=== PATIENT | male | born 1935 | race Caucasian/White ===

== ENCOUNTER 2023-01-27 18:04 | Emergency (ER) | payer MEDICARE, SELFPAY ==
[2023-01-27] VITALS (8 sets, daily range): BP systolic 130–153; BP diastolic 77–90; PULSE 60–74; RESP 12–18; TEMP 36.9; O2SAT 91–98; BMI 29.8
--- NOTE | 2023-01-27 18:27 | ECG_ITS ---
The [facility] Test Date: 2023-01-27 Pat Name: KIRILL KAUR Department: Room: - Gender: Male Neuropsychology Director: : 1935 Requested By: RITU ZHAO Order Number: [id number] Reading MD: PATRICK ALLISON Measurements Intervals [place] Rate: 59 P: 76 TN: 172 QRS: 37 QRSD: 84 T: 43 QT: 404 QTc: 404 Interpretive Statements 1100 Sinus rhythm 9110 normal ECG No previous ECG available for comparison Electronically Signed On 01-29-2023 16:51:00 EST by PATRICK ALLISON
--- NOTE | 2023-01-27 18:28 | ED_ITS ---
Documented by User: BUSHRA Urias 01/27/23 21:11 HPI - General Adult General Chief complaint: Fall Stated complaint: FALL Time Seen by Provider: 01/27/23 18:25 Source: patient and caregiver (EMS) Source information: granddaughter at bedside Mode of arrival: ambulance Limitations: altered mental status History of Present Illness HPI narrative: patient is a 87-year-old male presents to the Emergency Room with fall unwitnessed an assisted living facility. Patient owns her also. Does not recall the fall. Has a small laceration to the left brow. Patient recently took his to dialysis and was back home around 4 PM. He was found a few hours later. Patient does not recall falling and EMS was consulted for concern of loss of consciousness.. patient admits he does not know what happened of that he woke up on the ground, he complains of some mild soreness to his right wrist. No other complaints, denies visual disturbance, nausea or headache. Patient aware that he is bleeding from the right brow. Patient is full code, lives with his in assisted care facility where he has monitored and given medication. He easily identifies his granddaughter at bedside, she reports that he appears baseline but has had steady cognitive decline with staff helping him with ADL's.. Pt admits he doesn't write checks anymore or keep track of time/ days. granddaughter and she deck at bedside, patient pleasantly confused, states he does not know his medical history or medications they just give them to me . Patient states he does not stay current with a day of the week. He does drive his to her dialysis appointments three days a week. Patient had a c-collar placed on arrival out of precaution pending CT studies. Related Data Allergies Allergy/AdvReac Type Severity Reaction Status Date / Time Sulfa (Sulfonamide Allergy Unknown Verified 01/27/23 18:37 Antibiotics) Review of Systems ROS Status of ROS unobtainable due to mental status Constitutional Denies: fever or chills Eyes Denies: change in vision PFSH PFSH Social History Smoking status: Never smoker Exam Narrative Exam Narrative: Nurses notes and vital signs reviewed and patient is not hypoxic. General: The patient appears well and in no apparent distress. Patient is resting comfortably on cart. Skin: Warm, dry, no pallor noted.no evidence of rash, 1 cm laceration right brow bleeding controlled on arrival with direct pressure Head: Normocephalic, atraumatic Neck: Supple, trachea mid-line, no tenderness, no lymphadenopathy Eye: Pupils are equal, round and reactive to light, EOMI Ears, Nose, Mouth, and Throat: TM are clear, mild cerumen ,no hemotympanum, oral mucosa is moist, no posterior oropharynx erythema or hypertrophy, uvula is mid-line Cardiovascular: Regular Rate and Rhythm Respiratory: Patient is in no distress, no accessory muscle use, lungs are clear to auscultation, no wheezing, rales or rhonchi. Chest Wall: no tenderness Back: non-tender, no CVA tenderness Musculoskeletal: normal ROM,positive tenderness right distal radius, patient has full range of motion. no swelling, GI: Normal bowel sounds, no tenderness to palpation, no masses appreciated. No rebound, guarding, or rigidity noted. Neurological: A&O person and family at bedside. Psychiatric: Cooperative Constitutional Vital Signs, click to edit/add: Last Vital Signs Temp 98.4 F 01/27/23 18:06 Pulse 74 01/27/23 22:30 Resp 16 01/27/23 22:30 BP 130/90 01/27/23 22:30 Pulse Ox 96 01/27/23 22:30 O2 Del Method Room Air 01/27/23 18:06 Course Vital Signs Vital signs: Vital Signs Temperature 98.4 F 01/27/23 18:06 Pulse Rate 60 01/27/23 18:06 Respiratory Rate 18 01/27/23 18:06 Blood Pressure 133/77 01/27/23 18:06 Pulse Oximetry 97 01/27/23 18:06 Oxygen Delivery Method Room Air 01/27/23 18:06 Temperature 98.4 F 01/27/23 18:06 Pulse Rate 74 01/27/23 22:30 Respiratory Rate 16 01/27/23 22:30 Blood Pressure 130/90 01/27/23 22:30 Pulse Oximetry 96 01/27/23 22:30 Oxygen Delivery Method Room Air 01/27/23 18:06 Medical Decision Making MDM Narrative Medical decision making narrative: Given xarelto use, concern of altered mental status versus closed head injury patient sent for CT head and neck. positive loss of consciousness versus baseline altered mentation and forgetfulness. patient had suture repair of the right eyebrow, C-spine precautions removed after negative CT of the spine, patient has no tenderness. Repeat exam and patient doing well speaking with granddaughter at bedside. We discussed laboratory studies, patient has questionable findings for subarachnoid bleeding on CT. Contacted [facility], advised the patient has a history of atrial fibrillation, hypothyroid, hypertension, melanoma, hyperlipidemia, thyroid cancer and osteoarthritis on his chart. They will fax over a definitive report. He is a full code. Patient's case discussed with Dr. Lee neurosurgeon at a pharmacy at 7:55 PM. He advised that he would consult on the patient but they should be admitted to the hospitalist and stopped his xarelto. [facility] hospitalist paged Spoke with Dr. Rosario at 8:45pm, advised he would accept the patient for closed head injury observation, aware of Dr. Lee's recommendation, CT findings and labs discussed. Patient remained stable. He did advise that hospital policy at [facility] once may require admission to trauma service. Case was Discussed with Dr. Soler( trauma service) , reviewed Ct Findings. and agrees pt could be admitted to hospitalist as they are differentiating between calcification and bleed on CT scan with stable patient. Dr. Rosario was re-paged for transfer. Risks and benefits of transfer discussed, patient preferring to go by private car with granddaughter driving. Grand-daughter unable to wait any longer and pt agrees to go by EMS transport. . Dr. Rosario accepted transfer at 9:10pm Lab Data Lab results reviewed: Yes I reviewed the patient's lab results Labs: Lab Results 01/27/23 01/27/23 Range/Units 19:16 19:22 WBC 5.6 (4.0-11.0) 10^3/uL RBC 4.36 L (4.70-6.10) 10^6/uL Hgb 14.2 (14.0-18.0) g/dL Hct 42.3 (42.0-54.0) % MCV 97.0 H (80.0-94.0) fL MCH 32.6 (25.9-34.0) pg MCHC 33.6 (29.9-35.2) g/dL RDW 12.5 (11.0-15.0) % Plt Count 164 (150-450) 10^3/uL MPV 10.3 (9.5-13.5) fL Neut % (Auto) 53.9 (43.0-75.0) % Lymph % (Auto) 28.4 (20.5-60.0) % Page % (Auto) 14.5 H (1.7-12.0) % Eos % (Auto) 2.3 (0.9-7.0) % Baso % (Auto) 0.7 (0.2-2.0) % Neut # (Auto) 3.0 (1.4-6.5) 10^3/uL Lymph # (Auto) 1.6 (1.2-3.8) 10^3/uL Page # (Auto) 0.8 (0.3-0.8) 10^3/uL Eos # (Auto) 0.1 (0.0-0.7) 10^3/uL Baso # (Auto) 0.0 (0.0-0.1) 10^3/uL Abs Immat Gran (auto) 0.01 (0.00-0.03) 10^3/uL Imm/Tot Granulo (auto) 0.2 (0.0-0.5) % PT 11.3 (9.0-11.6) sec INR 1.07 Sodium 137 (136-145) mmol/L Potassium 4.4 (3.5-5.1) mmol/L Chloride 104 (98-107) mmol/L Carbon Dioxide 27.4 (21.0-32.0) mmol/L Anion Gap 10.0 BUN 24.0 H (7.0-18.0) mg/dL Creatinine 0.96 (0.70-1.30) mg/dL Est GFR ( Amer) >60 (>=60) Est GFR (Non-Af Amer) >60 (>=60) BUN/Creatinine Ratio 25.0 Glucose 102 (74-106) mg/dL Calcium 8.7 (8.5-10.1) mg/dL Total Bilirubin 0.5 (0.2-1.0) mg/dL AST 25 (15-37) U/L ALT 25 (16-63) U/L Alkaline Phosphatase 55 (46-116) U/L Total Creatine Kinase 284 (39-308) U/L CK-MB (CK-2) 3.29 (<=3.60) ng/mL Myoglobin 180 H (16-96) ng/mL Troponin I High Sens 31.7 (4.0-76.1) pg/mL Total Protein 7.4 (6.4-8.2) g/dL Albumin 3.6 (3.4-5.0) g/dL Globulin 3.8 g/dL Albumin/Globulin Ratio 0.9 Urine Color Yellow (YELLOW) Urine Clarity Clear (CLEAR) Urine pH 5.5 (5.0-9.0) Ur Specific [place] >=1.030 A (1.005-1.025) Urine Protein Negative (NEG/TRACE) mg/dL Urine Glucose (UA) Negative (NEGATIVE) mg/dL Urine Ketones Negative (NEGATIVE) mg/dL Urine Occult Blood Negative (NEGATIVE) Urine Nitrite Negative (NEGATIVE) Urine Bilirubin Negative (NEGATIVE) Urine Urobilinogen 0.2 (0.2-1.0) EU/dL Ur Leukocyte Esterase Negative (NEGATIVE) Imaging Data Ct C-spine: Radiologist's impression: Procedure: CT cervical spine wo con EXAM: CT cervical spine wo con HISTORY: fall with LOC COMPARISON: None. TECHNIQUE: Axial CT imaging was performed. Sagittal and coronal reformatted/reconstructed sequencing was additionally performed FINDINGS: IMPRESSION: Age-indeterminate straightening of the normal cervical lordosis between C1 and C6. Vertebral body heights and alignments exhibit no fracture or listhesis. The dens and lateral masses of C1 are symmetric. Multilevel intervertebral disc space narrowing, endplate, uncovertebral and facet arthrosis, most pronounced at 5-C6. No prevertebral soft tissue edema. The visualized osseous skull base, mastoid air cells, airway, superficial soft tissues, thoracic inlet and pulmonary apices exhibit no gross visualized irregularity. Surgical clips within the thoracic inlet. Atherosclerosis of the vascular structures. Electronically authenticated by: AMY ARROYO Date: 01/27/2023 18:58 right wrist xray: Radiologist's impression: EXAM: XR wrist RT min 3V HISTORY: Pain following fall COMPARISON: None. TECHNIQUE: 3 views FINDINGS: Palmar hand subcutaneous soft tissue edema. No discrete fracture, dislocation, subluxation or osseous lesion. Approximately 4.3 mm of positive ulnar variance. Mild subchondral changes within the adjacent proximal pole of the lunate. Age-related changes of first carpometacarpal and triscaphe joints. IMPRESSION: Palmar hand soft tissue edema with no visualized acute osseous abnormality. Electronically authenticated by: AMY ARROYO Date: 01/27/2023 19:02 Chest x-ray: Radiologist's impression: FRANCIA CRUZ Procedure: XR chest 1V Portable EXAMINATION: XR chest 1V HISTORY: Fall COMPARISON: None. TECHNIQUE: Portable chest FINDINGS: Limited study as the hemidiaphragms are cut off this study. The usual lung parenchyma is free of consolidation or infiltrate. No pneumothorax or large pleural effusion. The cardiac, mediastinal and hilar contours are normal. The visualized osseous structures exhibit no gross abnormality. IMPRESSION: No visualized acute cardiopulmonary abnormality. Electronically authenticated by: AMY ARROYO Date: 01/27/2023 19:04 CT scan - head: Attestation: I have reviewed the pertinent imaging results. Radiologist's impression: At the request of: KAILEE RONDON Procedure: CT head/brain wo con EXAM: CT head/brain wo con; [id number] REASON FOR EXAM: fall with LOC , patient on a blood thinner COMPARISON: None. TECHNIQUE: Axial CT images of the head obtained without contrast. Multiplanar reformats generated at the scanner. Dose reduction technique used: Automated exposure control and/or adjustment of the mA and/or kV according to patient size and/or use of iterative reconstruction technique. FINDINGS: Parenchyma: -Moderate generalized cerebral volume loss. -No midline shift or mass effect. Basilar cisterns are patent. -No acute intracranial hemorrhage. -No loss of cortical eden-white differentiation to indicate acute cortical infarct. -Mild multifocal and bilateral periventricular white matter predominant hypoattenuation, nonspecific though commonly seen in the setting of chronic microvascular ischemic disease. Extra-axial spaces: -Trace hyperattenuation within the right anterior temporal subarachnoid space (for example series 5 image 14 and series 7 image 39 through 45). -Trace hyperattenuation along the posterior aspect of the falx cerebri (series 6 image 54). Ventricles: Within expected limits given the degree of cerebral volume loss. Paranasal sinuses: Visualized paranasal sinuses are clear. Mastoid air cells: Partial opacification of the right mastoid air cells. The right middle ear is clear. Small left mastoid effusion. Orbits: No acute abnormality. Osseous: No acute findings. Soft tissues: Large amount of presumed cerumen within bilateral external auditory canals. IMPRESSION: 1. Trace right temporal lobe subarachnoid hyperattenuation could represent artifact versus posttraumatic subarachnoid hemorrhage. 2. Trace hyperattenuation along the posterior aspect of the falx cerebri is favored represent amorphous dural calcification though a minimal amount of subdural blood products could have a similar appearance. CRITICAL RESULT COMMUNICATION BY: Carin Brink MD TO: Kailee Rondon TIME/DATE COMMUNICATED: 01/27/2023 4:19 PM PST METHOD: via telephone FINDING: Possible acute intracranial hemorrhage TIME/DATE IDENTIFIED: 01/27/2023 4:07 PM PST END CRITICAL RESULT COMMUNICATION Electronically authenticated by: CARIN BRINK Date: 01/27/2023 19:21 ECG Data Attestation: I personally reviewed and interpreted this ECG as follows: Interpretation: EKG interpretation: Emergency Department physician interpretation, normal sinus rhythm 59 , no ectopy, no ST segment elevation, normal axis. Discharge Plan Discharge Chief Complaint: Fall Clinical Impression: Closed head injury Patient Disposition: [facility] Time of Disposition Decision: 20:10 Discharge Location: [facility] Discharge location: [facility] Floor- Dr. Rosario accepting. Condition: Good Mode of Transportation: Private Vehicle Discharge Date/Time: 01/28/23 00:40 Procedures ED Laceration Laceration right brow: Additional comments: Laceration repair: Done under sterile conditions. The use of Betadine was used to prep and clean the area. right brow. Topical LET applied: The wound was irrigated copiously with normal saline. The wound was explored there was no evidence of foreign material. The laceration was approximated with 6-0 prolene. 6 simple interrupted sutures were placed. Patient tolerated the procedure well. The patient was neurovascularly intact post. the patient had bacitracin applied to the laceration and a dry sterile dressing was place. The patient will need to follow-up in the next 7-10 days for removal. Documented by User: Kailee Rondon MD 02/01/23 18:37 HPI - General Adult General Chief complaint: Fall Stated complaint: FALL Time Seen by Provider: 01/27/23 18:25 Related Data Allergies Allergy/AdvReac Type Severity Reaction Status Date / Time Sulfa (Sulfonamide Allergy Unknown Verified 01/27/23 18:37 Antibiotics) PFSH PFSH Social History Smoking status: Never smoker Exam Constitutional Vital Signs, click to edit/add: Last Vital Signs Temp 98.4 F 01/27/23 18:06 Pulse 74 01/27/23 22:30 Resp 16 01/27/23 22:30 BP 130/90 01/27/23 22:30 Pulse Ox 96 01/27/23 22:30 O2 Del Method Room Air 01/27/23 18:06 Course Vital Signs Vital signs: Vital Signs Temperature 98.4 F 01/27/23 18:06 Pulse Rate 60 01/27/23 18:06 Respiratory Rate 18 01/27/23 18:06 Blood Pressure 133/77 01/27/23 18:06 Pulse Oximetry 97 01/27/23 18:06 Oxygen Delivery Method Room Air 01/27/23 18:06 Temperature 98.4 F 01/27/23 18:06 Pulse Rate 74 01/27/23 22:30 Respiratory Rate 16 01/27/23 22:30 Blood Pressure 130/90 01/27/23 22:30 Pulse Oximetry 96 01/27/23 22:30 Oxygen Delivery Method Room Air 01/27/23 18:06 Medical Decision Making MDM Narrative Medical decision making narrative: Given xarelto use, concern of altered mental status versus closed head injury patient sent for CT head and neck. positive loss of consciousness versus baseline altered mentation and forgetfulness. patient had suture repair of the right eyebrow, C-spine precautions removed after negative CT of the spine, patient has no tenderness. Repeat exam and patient doing well speaking with granddaughter at bedside. We discussed labor atory studies, patient has questionable findings for subarachnoid bleeding on CT. Contacted [facility], advised the patient has a history of atrial fibrillation, hypothyroid, hypertension, melanoma, hyperlipidemia, thyroid cancer and osteoarthritis on his chart. They will fax over a definitive report. He is a full code. Patient's case discussed with Dr. Lee neurosurgeon at a pharmacy at 7:55 PM. He advised that he would consult on the patient but they should be admitted to the hospitalist and stopped his xarelto. [facility] hospitalist paged Spoke with Dr. Rosario at 8:45pm, advised he would accept the patient for closed head injury observation, aware of Dr. Lee's recommendation, CT findings and labs discussed. Patient remained stable. He did advise that hospital policy at [facility] once may require admission to trauma service. Case was Discussed with Dr. Soler( trauma service) , reviewed Ct Findings. and agrees pt could be admitted to hospitalist as they are differentiating between calcification and bleed on CT scan with stable patient. Dr. Rosario was re-paged for transfer. Risks and benefits of transfer discussed, patient preferring to go by private car with granddaughter driving. Grand-daughter unable to wait any longer and pt agrees to go by EMS transport. . Dr. Rosario accepted transfer at 9:10pm Pt was seen and evaluated by Dr Brown, not Dr Rondon. Critical care time 45 minutes exclusive from separate billable procedures that were performed. The following was considered in the determination of critical care but not limited to the level of medical decision making, intensive cardiac and/or respiratory monitoring, frequent vital sign monitoring, evaluation of laboratory studies, evaluation of radiographic studies, oxygen monitoring, and constant monitoring and speaking to family at bedside Lab Data Labs: Lab Results 01/27/23 01/27/23 Range/Units 19:16 19:22 WBC 5.6 (4.0-11.0) 10^3/uL RBC 4.36 L (4.70-6.10) 10^6/uL Hgb 14.2 (14.0-18.0) g/dL Hct 42.3 (42.0-54.0) % MCV 97.0 H (80.0-94.0) fL MCH 32.6 (25.9-34.0) pg MCHC 33.6 (29.9-35.2) g/dL RDW 12.5 (11.0-15.0) % Plt Count 164 (150-450) 10^3/uL MPV 10.3 (9.5-13.5) fL Neut % (Auto) 53.9 (43.0-75.0) % Lymph % (Auto) 28.4 (20.5-60.0) % Page % (Auto) 14.5 H (1.7-12.0) % Eos % (Auto) 2.3 (0.9-7.0) % Baso % (Auto) 0.7 (0.2-2.0) % Neut # (Auto) 3.0 (1.4-6.5) 10^3/uL Lymph # (Auto) 1.6 (1.2-3.8) 10^3/uL Page # (Auto) 0.8 (0.3-0.8) 10^3/uL Eos # (Auto) 0.1 (0.0-0.7) 10^3/uL Baso # (Auto) 0.0 (0.0-0.1) 10^3/uL Abs Immat Gran (auto) 0.01 (0.00-0.03) 10^3/uL Imm/Tot Granulo (auto) 0.2 (0.0-0.5) % PT 11.3 (9.0-11.6) sec INR 1.07 Sodium 137 (136-145) mmol/L Potassium 4.4 (3.5-5.1) mmol/L Chloride 104 (98-107) mmol/L Carbon Dioxide 27.4 (21.0-32.0) mmol/L Anion Gap 10.0 BUN 24.0 H (7.0-18.0) mg/dL Creatinine 0.96 (0.70-1.30) mg/dL Est GFR ( Amer) >60 (>=60) Est GFR (Non-Af Amer) >60 (>=60) BUN/Creatinine Ratio 25.0 Glucose 102 (74-106) mg/dL Calcium 8.7 (8.5-10.1) mg/dL Total Bilirubin 0.5 (0.2-1.0) mg/dL AST 25 (15-37) U/L ALT 25 (16-63) U/L Alkaline Phosphatase 55 (46-116) U/L Total Creatine Kinase 284 (39-308) U/L CK-MB (CK-2) 3.29 (<=3.60) ng/mL Myoglobin 180 H (16-96) ng/mL Troponin I High Sens 31.7 (4.0-76.1) pg/mL Total Protein 7.4 (6.4-8.2) g/dL Albumin 3.6 (3.4-5.0) g/dL Globulin 3.8 g/dL Albumin/Globulin Ratio 0.9 Urine Color Yellow (YELLOW) Urine Clarity Clear (CLEAR) Urine pH 5.5 (5.0-9.0) Ur Specific [place] >=1.030 A (1.005-1.025) Urine Protein Negative (NEG/TRACE) mg/dL Urine Glucose (UA) Negative (NEGATIVE) mg/dL Urine Ketones Negative (NEGATIVE) mg/dL Urine Occult Blood Negative (NEGATIVE) Urine Nitrite Negative (NEGATIVE) Urine Bilirubin Negative (NEGATIVE) Urine Urobilinogen 0.2 (0.2-1.0) EU/dL Ur Leukocyte Esterase Negative (NEGATIVE) Discharge Plan Discharge Chief Complaint: Fall Clinical Impression: Closed head injury Patient Disposition: [facility] Time of Disposition Decision: 20:10 Discharge Location: [facility] Discharge location: [facility] Floor- Dr. Rosario accepting. Condition: Good Mode of Transportation: Private Vehicle Discharge Date/Time: 01/28/23 00:40
--- NOTE | 2023-01-27 18:28 | PC.NURSE ---
Laceration to forehead cleansed with Radhames
--- NOTE | 2023-01-27 18:30 | CT_ITS ---
The [address] [address] Patient Name: KIRILL KAUR MRN: [id number] date: 1935 Sex: M Assigned Patient Location: ED.MAIN Current Patient Location: ER Accession/Order Number: [id number] Exam Date: 01/27/2023 18:24 Report Date: 01/27/2023 18:58 At the request of: KAILEE FREGOSO Procedure: CT cervical spine wo con EXAM: CT cervical spine wo con HISTORY: fall with LOC COMPARISON: None. TECHNIQUE: Axial CT imaging was performed. Sagittal and coronal reformatted/reconstructed sequencing was additionally performed FINDINGS: IMPRESSION: Age-indeterminate straightening of the normal cervical lordosis between C1 and C6. Vertebral body heights and alignments exhibit no fracture or listhesis. The dens and lateral masses of C1 are symmetric. Multilevel intervertebral disc space narrowing, endplate, uncovertebral and facet arthrosis, most pronounced at 5-C6. No prevertebral soft tissue edema. The visualized osseous skull base, mastoid air cells, airway, superficial soft tissues, thoracic inlet and pulmonary apices exhibit no gross visualized irregularity. Surgical clips within the thoracic inlet. Atherosclerosis of the vascular structures. Electronically authenticated by: AMY ARROYO Date: 01/27/2023 18:58
--- NOTE | 2023-01-27 18:48 | XR_ITS ---
The [address] [address] Patient Name: KIRILL KAUR MRN: [id number] date: 1935 Sex: M Assigned Patient Location: ER Current Patient Location: ER Accession/Order Number: [id number] Exam Date: 01/27/2023 18:40 Report Date: 01/27/2023 19:02 At the request of: FRANCIA CRUZ Procedure: XR wrist RT min 3V EXAM: XR wrist RT min 3V HISTORY: Pain following fall COMPARISON: None. TECHNIQUE: 3 views FINDINGS: Palmar hand subcutaneous soft tissue edema. No discrete fracture, dislocation, subluxation or osseous lesion. Approximately 4.3 mm of positive ulnar variance. Mild subchondral changes within the adjacent proximal pole of the lunate. Age-related changes of first carpometacarpal and triscaphe joints. XR/XR wrist RT min 3V IMPRESSION: Palmar hand soft tissue edema with no visualized acute osseous abnormality. Electronically authenticated by: AMY ARROYO Date: 01/27/2023 19:02
--- NOTE | 2023-01-27 18:48 | XR_ITS ---
The [address] [address] Patient Name: KIRILL KAUR MRN: [id number] date: 1935 Sex: M Assigned Patient Location: ER Current Patient Location: ER Accession/Order Number: [id number] Exam Date: 01/27/2023 18:40 Report Date: 01/27/2023 19:04 At the request of: FRANCIA CRUZ Procedure: XR chest 1V Portable EXAMINATION: XR chest 1V HISTORY: Fall COMPARISON: None. TECHNIQUE: Portable chest FINDINGS: Limited study as the hemidiaphragms are cut off this study. The usual lung parenchyma is free of consolidation or infiltrate. No pneumothorax or large pleural effusion. The cardiac, mediastinal and hilar contours are normal. The visualized osseous structures exhibit no gross abnormality. XR/XR chest 1V IMPRESSION: No visualized acute cardiopulmonary abnormality. Electronically authenticated by: AMY ARROYO Date: 01/27/2023 19:04
[2023-01-27] MEDS: LIDOCAINE HCL 1% PF 20 MG/2 ML VIAL 5 ML INJ (18:53)
[2023-01-27 19:32] LABS: Basophils Percent Auto 0.7 % (0.2-2.0); Eosinophils Absolute Auto 0.1 10^3/uL (0.0-0.7); Eosinophils Percent Auto 2.3 % (0.9-7.0); Hematocrit 42.3 % (42.0-54.0); Hemoglobin 14.2 g/dL (14.0-18.0); Immature Granulocytes Abs Auto 0.01 10^3/uL (0.00-0.03); Immature Granulocytes Pct Auto 0.2 % (0.0-0.5); Lymphocytes Absolute Auto 1.6 10^3/uL (1.2-3.8); Lymphocytes Percent Auto 28.4 % (20.5-60.0); Mean Corpuscular HGB Conc 33.6 g/dL (29.9-35.2); Mean Corpuscular Hemoglobin 32.6 pg (25.9-34.0); Mean Platelet Volume 10.3 fL (9.5-13.5); Monocytes Absolute Auto 0.8 10^3/uL (0.3-0.8); Monocytes Percent Auto 14.5 % (1.7-12.0); Neutrophils Percent Auto 53.9 % (43.0-75.0); Platelet Count 164 10^3/uL (150-450); Red Blood Count 4.36 10^6/uL (4.70-6.10); Red Cell Distribution Width 12.5 % (11.0-15.0); White Blood Count 5.6 10^3/uL (4.0-11.0)
[2023-01-27 19:33] LABS: Bilirubin Urine NEGATIVE (NEGATIVE); Blood Urine NEGATIVE (NEGATIVE); Clarity Urine CLEAR (CLEAR); Color Urine YELLOW (YELLOW); Glucose Urine UA NEGATIVE (NEGATIVE); Ketones Urine NEGATIVE (NEGATIVE); Leukocyte Esterase Urine NEGATIVE (NEGATIVE); Nitrite Urine NEGATIVE (NEGATIVE); Protein Urine NEGATIVE (NEG/TRACE); Specific Gravity Urine >=1.030 (1.005-1.025); Urobilinogen Urine 0.2 EU/dL (0.2-1.0); pH Urine 5.5 (5.0-9.0)
[2023-01-27 19:37] LABS: Urine Microscopic Indicated NO
[2023-01-27 19:44] LABS: INR 1.07; Prothrombin Time 11.3 sec (9.0-11.6)
[2023-01-27 19:48] LABS: Alanine Aminotransferase 25 U/L (16-63); Albumin Globulin Ratio 0.9; Albumin Level 3.6 g/dL (3.4-5.0); Alkaline Phosphatase 55 U/L (46-116); Aspartate Amino Transferase 25 U/L (15-37); Bilirubin Total 0.5 mg/dL (0.2-1.0); Calcium 8.7 mg/dL (8.5-10.1); Carbon Dioxide 27.4 mmol/L (21.0-32.0); Chloride 104 mmol/L (98-107); Estimated GFR (African America >60 (>=60); Estimated GFR (Non-African Ame >60 (>=60); Globulin 3.8 g/dL; Glucose 102 mg/dL (74-106); Potassium 4.4 mmol/L (3.5-5.1); Sodium 137 mmol/L (136-145); Total Protein 7.4 g/dL (6.4-8.2)
[2023-01-27 20:02] LABS: Creatine Kinase 284 U/L (39-308); Creatine Kinase MB 3.29 ng/mL (<=3.60); Myoglobin 180 ng/mL (16-96); Troponin I High Sensitivity 31.7 pg/mL (4.0-76.1)
== END 2023-01-28 00:40 | disposition short-term general hospital (02) ==
PROVIDERS: Personal Emergency Response Attendant; Emergency Provider Emergency Medicine; PCP Family Medicine
DX: S09.8XXA Other specified injuries of head, initial encounter (principal); S01.111A Laceration without foreign body of right eyelid and periocular area, initial encounter; W19.XXXA Unspecified fall, initial encounter; I48.91 Unspecified atrial fibrillation; E03.9 Hypothyroidism, unspecified; E78.5 Hyperlipidemia, unspecified; M19.90 Unspecified osteoarthritis, unspecified site; Z85.850 Personal history of malignant neoplasm of thyroid; Z79.01 Long term (current) use of anticoagulants; I10 Essential (primary) hypertension; M25.531 Pain in right wrist
CPT/HCPCS: 12011; 36415; 70450; 71045; 72125; 73110; 80053; 81003; 82550; 82553; 83874; 84484; 85025; 85610; 85730; 93005; 99285